=== PATIENT | female | born 1965 | race Caucasian/White ===

== ENCOUNTER → 2018-10-23 | Outpatient (CLI) | payer OTHER, MEDICARE ==
[~2018-10-23] MED LIST: ALDACTONE25 MG PO; ASPIRIN FOR CHI81 MG PO; CARVEDILOL3.125 MG PO; COZAAR25 MG PO; COZAAR50 M1 PO; DOXYCYCLINE HY100 M3 PO; Duoneb 3ML 3 MG/3 ML INH; EFFIENT10 MG PO; FAMOTIDINE20 MG PO; LANOXIN0.25 MG PO; LANTUS100 U/ML SC; LASIX40 MG PO; LEVAQUIN500 M2 PO; LIPITOR40 MG PO; METFORMIN500 MG PO; NOVOLOG100 U/ML SC; PLAVIX75 MG PO; PREDNICOT20 MG PO; PREDNISONE10 MG PO; PROAIR HFA0.09 MG/AC INH; TOPROL XL25 MG PO; ULTRAM50 MG PO; ZITHROMAX Z PA250 MG PO; ZOFRAN ODT4 MG SL; ZYRTEC10 MG PO
[2018-10-23 11:35] LABS: BUN 31 mg/dl (7-24); CHOLESTEROL 110 mg/dL (<200); HDL CHOLESTEROL 56 mg/dl (40-60); LDL CHOLESTEROL 45 mg/dL (9-159); SGOT/AST 14 IU/L (3-35); SGPT/ALT 18 U/L (12-78); TRIGLYCERIDES 45 mg/dl (<150); VLDL CHOLESTEROL 9 mg/dL (6-40)
== END | disposition home or self-care (01) ==
LOC: LAB 10:51
PROVIDERS: Internal Medicine Endocrinology, Diabetes & Metabolism
DX: E11.65 Type 2 diabetes mellitus with hyperglycemia (principal); I10 Essential (primary) hypertension; E78.5 Hyperlipidemia, unspecified; E66.9 Obesity, unspecified; Z79.4 Long term (current) use of insulin

== ENCOUNTER 2021-02-03 17:39 | Emergency (ER) | payer OTHER ==
[~2021-02-03] VITALS: Wt 158.8 kg
== END 2021-02-03 19:45 ==
LOC: ED 17:47
DX: I46.9 Cardiac arrest, cause unspecified (principal)